=== PATIENT | female | born 2000 | race Hispanic/Latino ===

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

== ENCOUNTER 2021-10-21 17:42 | Emergency (ER) | payer OTHER ==
[2021-10-21 19:24] VITALS: BP 117/67; PULSE 76
== END 2021-10-21 19:24 | disposition home or self-care (01) ==
LOC: MW.ED 17:42
DX: S09.90XA Unspecified injury of head, initial encounter (principal); N39.0 Urinary tract infection, site not specified; W22.8XXA Striking against or struck by other objects, initial encounter
CPT/HCPCS: 70450; 70450-26; 81001; 81025; 87086; 99284

== ENCOUNTER 2022-08-18 08:58 | Emergency (ER) | payer BC ==
[2022-08-18] MEDS ORDERED: Ondansetron 4 MG Tab.DIS PO ONE (09:19)
[2022-08-18] MEDS ORDERED: Sodium Chloride 0.9% 1,000 ML IV ONE (09:19)
[2022-08-18] MEDS ORDERED: Ketorolac 30 MG/ML SDV IVPUSH ONE (09:19)
[2022-08-18] MEDS ORDERED: Ondansetron 4 MG/2 ML SDV IVPUSH ONE (09:23)
[2022-08-18 09:24] LABS: BASOPHILS PERCENT AUTO 0.3 % (0.0-1.5); EOSINOPHILS ABSOLUTE AUTO 0.4 K/uL (0.0-0.7); EOSINOPHILS PERCENT AUTO 2.9 % (0.0-7.0); HEMOGLOBIN 14.3 g/dL (12.0-16.0); MEAN CORPUSCULAR HEMOGLOBIN 28.9 pg (27.0-32.0); MONOCYTES ABSOLUTE AUTO 0.9 K/uL (0.0-0.8); MONOCYTES PERCENT AUTO 7.2 % (0.0-15.0); NEUTROPHILS ABSOLUTE AUTO 8.6 K/uL (1.4-5.7); NEUTROPHILS PERCENT AUTO 66.6 % (48.0-80.0); NRBC ABSOLUTE 0 K/uL; PLATELET COUNT,PLT 363 K/uL (150-400); RED BLOOD CELL COUNT 4.94 M/uL (4.30-5.90); WHITE BLOOD CELL COUNT,WBC 12.89 K/uL (4.0-11.0)
[2022-08-18 09:44] LABS: A/G RATIO 0.8 (0.9-1.6); ALBUMIN 3.4 g/dL (3.4-5.0); BILIRUBIN TOTAL 0.3 mg/dL (0.2-1.0); CALCIUM 9.3 mg/dL (8.5-10.1); CARBON DIOXIDE,CO2 21.3 mmol/L (21.0-32.0); CREATININE 0.7 mg/dL (0.6-1.0); EST CRCL DRUG DOSING (CG) 113.43 mL/min; POTASSIUM,K 3.9 mmol/L (3.5-5.1); PROTEIN TOTAL,TP 7.6 g/dL (6.4-8.2)
[2022-08-18] MEDS ORDERED: Iopamidol 755 Mg/ML 100 ML Bottle IVPUSH ONE (10:15)
[2022-08-18 10:34] LABS: APPEARANCE,URINE CLEAR; BILIRUBIN,URINE NEGATIVE (NEGATIVE); COLOR,URINE YELLOW; GLUCOSE,URINE NEGATIVE (NEGATIVE); KETONES,URINE NEGATIVE (NEGATIVE); LEUKOCYTE ESTERASE,URINE NEGATIVE (NEGATIVE); NITRITE,URINE NEGATIVE (NEGATIVE); OCCULT BLOOD,URINE SMALL (NEGATIVE); PH,URINE 5.5 (5.0-8.0); PROTEIN,URINE NEGATIVE (NEGATIVE); UROBILINOGEN,URINE 0.2 EU/dL (<2.0)
[2022-08-18 10:41] LABS: EPITHELIAL CELLS,URINE RARE (NONE-FEW); WBC,URINE 0-2 (0-5/HPF)
[2022-08-18 10:42] LABS: BACTERIA,URINE FEW (NEGATIVE)
[2022-08-18 12:01] VITALS: BP 114/78; PULSE 82
== END 2022-08-18 12:44 | disposition home or self-care (01) ==
LOC: MW.ED 08:58
DX: K59.00 Constipation, unspecified (principal)
CPT/HCPCS: 36415; 74177; 80053; 81001; 83690; 84703; 85025; 96361; 96374; 96375; 99284; J1885; J2405; J7030; Q9967

== ENCOUNTER 2022-08-20 01:01 | Emergency (ER) | payer BC ==
[2022-08-20] MEDS ORDERED: Lidocaine 4% 1 each Patch TOP SCH (02:45)
[2022-08-20 03:06] VITALS: BP 134/68; PULSE 87
== END 2022-08-20 03:05 | disposition home or self-care (01) ==
LOC: MW.ED 01:01
DX: S93.401A Sprain of unspecified ligament of right ankle, initial encounter (principal); X50.1XXA Overexertion from prolonged static or awkward postures, initial encounter
CPT/HCPCS: 73610; 73630; 99283; A9270